=== PATIENT | male | born 1955 | race American Indian/Alaskan Native ===

== ENCOUNTER 2019-03-28 10:58 | Inpatient (IN) | payer OTHER ==
[2019-03-28] MEDS ORDERED: Sodium Chloride 0.9% 1,000 ML IV ONE (11:09)
[2019-03-28] MEDS ORDERED: HYDROmorphone 1 MG/ML Syringe IVPUSH ONE (11:09)
[2019-03-28] MEDS ORDERED: Ondansetron 4 MG/2 ML SDV ONE (11:12)
[2019-03-28] MEDS: Sodium Chloride 0.9% 10 ML Syringe FLUSH PRN (11:14)
[2019-03-28] MEDS ORDERED: Ondansetron 4 MG/2 ML SDV IVPUSH ONE (11:22)
[2019-03-28 12:46] LABS: ANION GAP 13.7
[2019-03-28] MEDS ORDERED: fentaNYL 100 MCG/2 ML SDV IVPUSH ONE (12:49)
--- NOTE | 2019-03-28 14:15 | EDM.PDOC ---
Scribed by Mell Enciso 03/28/19 1322 for Roro Ashley NP ED HPI GENERAL MEDICAL PROBLEM - General Chief Complaint: Abdominal Pain Stated Complaint: ABD PAIN Time Seen by Provider: 03/28/19 11:13 Source of Information: Reports: Patient, RN, RN Notes Reviewed History Limitations: Reports: No Limitations - History of Present Illness INITIAL COMMENTS - FREE TEXT/NARRATIVE: Patient presents to ER with complaint of abdominal pain that he woke up with at 05:00. Pain progressively getting worse. Pain at 4/10 At this time. Last bowel movement today normal for him. Pain is located mid abdomen to left flank. He has had nausea, vomiting, chills, frequency, urgency, and burning with urination. No diarrhea (always loose), fever, chest pains and shortness of breath. No blood in urine. Onset: Today Duration: Getting Worse Location: Reports: Abdomen (to left flank) Quality: Reports: Ache Severity: Moderate Improves with: Reports: None Worsens with: Reports: None Associated Symptoms: Reports: No Other Symptoms Left Flank Pain Score (Numeric/FACES): 10 - Related Data Allergies Allergy/AdvReac Type Severity Reaction Status Date / Time No Known Allergies Allergy Verified 01/02/16 20:45 Home Meds: Home Meds . [No Known Home Meds] 01/02/16 [History] Past Medical History HEENT History: Reports: None Cardiovascular History: Reports: Hypertension Respiratory History: Reports: None Gastrointestinal History: Reports: None Genitourinary History: Reports: None Musculoskeletal History: Reports: None Neurological History: Reports: None Psychiatric History: Reports: None Endocrine/Metabolic History: Reports: None Hematologic History: Reports: None Immunologic History: Reports: None Oncologic (Cancer) History: Reports: None Dermatologic History: Reports: None ED ROS GENERAL - Review of Systems Review Of Systems: Comprehensive ROS is negative, except as noted in HPI. ED EXAM, GI/ABD - Physical Exam Exam: See Below Exam Limited By: No Limitations General Appearance: Alert, WD/WN, No Apparent Distress Eyes: Bilateral: Normal Appearance Ears: Normal External Exam, Normal Canal, Hearing Grossly Normal, Normal TMs Nose: Normal Inspection, Normal Mucosa, No Blood Throat/Mouth: Normal Inspection, Normal Lips, Normal Teeth, Normal Gums, Normal Oropharynx, Normal Voice, No Airway Compromise Head: Atraumatic, Normocephalic Neck: Normal Inspection, Supple, Non-Tender, Full Range of Motion Respiratory/Chest: No Respiratory Distress, Lungs Clear, Normal Breath Sounds, No Accessory Muscle Use, Chest Non-Tender Cardiovascular: Normal Peripheral Pulses, Regular Rate, Rhythm, No Edema, No Gallop, No JVD, No Murmur, No Rub GI/Abdominal Exam: Tender (left upper quadrant and left lower quadrant. ) (Male) Exam: Other (No pain in groin/testes) Rectal (Males) Exam: Deferred Back Exam: Normal Inspection. No: CVA Tenderness (L), CVA Tenderness (R) Extremities: Normal Inspection, Normal Range of Motion, Non-Tender, Normal Capillary Refill, No Pedal Edema Neurological: Alert, Oriented, CN II-XII Intact, Normal Cognition, Normal Gait, Normal Reflexes, No Motor/Sensory Deficits Psychiatric: Flat Affect Skin Exam: Warm, Dry, Intact, Normal Color, No Rash Lymphatic: No Adenopathy Course - Vital Signs Last Recorded V/S: Last Vital Signs Temp 96.4 F 03/28/19 11:18 Pulse 62 03/28/19 11:18 Resp 24 H 03/28/19 11:18 BP 136/73 03/28/19 11:18 Pulse Ox 93 L 03/28/19 11:18 - Orders/Labs/Meds Orders: Active Orders 24 hr Category Date Time Status Peripheral IV Care [RC] . DIRECTED Care 03/28/19 11:09 Active Abdomen Pelvis wo Cont [CT] Urgent Exams 03/28/19 12:01 Taken CULTURE URINE [RM] Stat Lab 03/28/19 11:32 Received Sodium Chloride 0.9% [Saline Flush] Med 03/28/19 11:09 Active 10 ml FLUSH ASDIRECTED PRN Peripheral IV Insertion Adult [OM.PC] Stat Oth 03/28/19 11:08 Ordered Medication Orders Sodium Chloride (Saline Flush) 10 ml FLUSH ASDIRECTED PRN PRN Reason: Keep Vein Open Last Admin: 03/28/19 11:14 Dose: 10 ml Labs: Laboratory Tests 03/28/19 03/28/19 03/28/19 Range/Units 11:32 12:05 12:05 WBC 10.4 H (5.0-10.0) 10^3/uL RBC 4.77 (4.6-6.2) 10^6/uL Hgb 14.4 (14.0-18.0) g/dL Hct 42.1 (40.0-54.0) % MCV 88.3 (80-100) fL MCH 30.2 (27.0-34.0) pg MCHC 34.2 (33.0-35.0) g/dL Plt Count 204 (150-450) 10^3/uL Neut % (Auto) 83.0 H (42.2-75.2) % Lymph % (Auto) 11.3 L (20.5-50.1) % [place] % (Auto) 5.1 (2-8) % Eos % (Auto) 0.4 L (1.0-3.0) % Baso % (Auto) 0.2 (0.0-1.0) % Sodium 134 L (135-145) mmol/L Potassium 4.7 (3.6-5.0) mmol/L Chloride 103 (101-111) mmol/L Carbon Dioxide 22.0 (21.0-31.0) mmol/L Anion Gap 13.7 BUN 19 H (7-18) mg/dL Creatinine 1.3 (0.6-1.3) mg/dL Est Cr Clr Drug Dosing 64.67 mL/min Estimated GFR (MDRD) 56 BUN/Creatinine Ratio 14.61 Glucose 151 H (74-105) mg/dL Calcium 8.3 L (8.4-10.2) mg/dl Total Bilirubin 0.7 (0.2-1.0) mg/dL AST 22 (10-42) IU/L ALT 17 (10-60) IU/L Alkaline Phosphatase 45 (42-121) IU/L Total Protein 6.5 L (6.7-8.2) g/dl Albumin 3.6 (3.2-5.5) g/dl Globulin 2.9 Albumin/Globulin Ratio 1.24 Urine Color Brown (YELLOW) Urine Appearance Turbid (CLEAR) Urine pH 5.0 (5.0-9.0) Ur Specific [place] >= 1.030 (1.005-1.030) Urine Protein >=300 H (NEGATIVE) Urine Glucose (UA) Negative (NEGATIVE) Urine Ketones Negative (NEGATIVE) Urine Occult Blood Large H (NEGATIVE) Urine Nitrite Positive H (NEGATIVE) Urine Bilirubin Small H (NEGATIVE) Urine Urobilinogen 0.2 (0.2-1.0) mg/dL Ur Leukocyte Esterase Negative (NEGATIVE) Urine RBC >100 H /HPF Urine WBC 0-5 (0-5/HPF) /HPF Ur Epithelial Cells Few (NOT SEEN) /HPF Amorphous Sediment Moderate (NOT SEEN) /HPF Urine Bacteria Moderate H (0-FEW/HPF) /HPF Meds: Medications Generic Name Dose Route Start Last Admin Trade Name Freq PRN Reason Stop Dose Admin Sodium Chloride 10 ml 03/28/19 11:09 03/28/19 11:14 Saline Flush FLUSH 10 ml ASDIRECTED PRN Administration Keep Vein Open Discontinued Medications Generic Name Dose Route Start Last Admin Trade Name Freq PRN Reason Stop Dose Admin Fentanyl 100 mcg 03/28/19 12:49 03/28/19 12:54 Sublimaze IVPUSH 03/28/19 12:50 100 mcg ONETIME ONE Administration Hydromorphone HCl 1 mg 03/28/19 11:09 03/28/19 11:12 Dilaudid IVPUSH 03/28/19 11:10 1 mg ONETIME ONE Administration Sodium Chloride 1,000 mls @ 999 mls/hr 03/28/19 11:09 03/28/19 11:14 Normal Saline IV 03/28/19 12:09 999 mls/hr .BOLUS ONE Administration Ondansetron HCl Confirm 03/28/19 11:12 03/28/19 11:23 Zofran Administered 03/28/19 11:13 Not Given Dose 4 mg .ROUTE .STK-MED ONE Ondansetron HCl 4 mg 03/28/19 11:22 03/28/19 11:24 Zofran IVPUSH 03/28/19 11:23 4 mg ONETIME ONE Administration - Radiology Interpretation Free Text/Narrative:: CT Abdomen/Pelvis wo contrast: FINDINGS: Lungs: There is minimal bibasilar atelectasis. Liver: Normal. No mass. Gallbladder and bile ducts: Normal. No calcified stones. No ductal dilation. Pancreas: Normal. No ductal dilation. Spleen: Normal. No splenomegaly. Adrenals: Nonspecific thickening of the adrenal glands. Kidneys and ureters: 3 mm calculus in the left mid ureter causing mild hydronephrosis. Additional left sided intrarenal calculi are present. Nonobstructing nephrolithiasis right kidney measuring up to 3 mm. Stomach and bowel: There are changes of diverticulosis without evidence for diverticulitis. Appendix: No evidence of appendicitis. Intraperitoneal space: Unremarkable. No free air. No significant fluid collection. Vasculature: Unremarkable. No abdominal aortic aneurysm. Lymph nodes: Unremarkable. No enlarged lymph nodes. Bladder: Unremarkable as visualized. Reproductive: Unremarkable as visualized. Bones/joints: There are changes of spondylosis. Findings include disc space narrowing, marginal osteophyte formation & facet arthropathy. Soft tissues: Unremarkable. IMPRESSION: 1. 3 mm calculus in the left mid ureter causing mild hydronephrosis. Additional left sided intrarenal calculi are present. 2. Nonobstructing nephrolithiasis right kidney measuring up to 3 mm. 3. Diverticulosis. Thank you for allowing us to participate in the care of your patient. Dictated and Authenticated by: Charan Mahajan MD 03/28/2019 1:13 PM Central Time ([place] & [place]) See rad report - Re-Assessments/Exams Free Text/Narrative Re-Assessment/Exam: 03/28/19 14:13 Pt case discussed with Dr. Reagan who agreed to accept the patient for inpatient admission Departure - Departure Time of Disposition: 14:14 Disposition: Admitted As Inpatient 67 Condition: Fair Clinical Impression: Pyelonephritis, Nephrolithiasis - Discharge Information *PRESCRIPTION DRUG MONITORING PROGRAM REVIEWED*: No *COPY OF PRESCRIPTION DRUG MONITORING REPORT IN PATIENT NICO: No Forms: ED Department Discharge Sepsis Event Note - Focused Exam Vital Signs: Vital Signs Temp Pulse Resp BP Pulse Ox 03/28/19 11:18 96.4 F 62 24 H 136/73 93 L Date Exam was Performed: 03/28/19 Time Exam was Performed: 14:13 - My Orders Last 24 Hours: My Active Orders 03/28/19 11:08 Peripheral IV Insertion Adult [OM.PC] Stat 03/28/19 11:09 Peripheral IV Care [RC] . DIRECTED Sodium Chloride 0.9% [Saline Flush] 10 ml FLUSH ASDIRECTED PRN 03/28/19 11:32 CULTURE URINE [RM] Stat 03/28/19 12:01 Abdomen Pelvis wo Cont [CT] Urgent - Assessment/Plan Last 24 Hours: My Active Orders 03/28/19 11:08 Peripheral IV Insertion Adult [OM.PC] Stat 03/28/19 11:09 Peripheral IV Care [RC] . DIRECTED Sodium Chloride 0.9% [Saline Flush] 10 ml FLUSH ASDIRECTED PRN 03/28/19 11:32 CULTURE URINE [RM] Stat 03/28/19 12:01 Abdomen Pelvis wo Cont [CT] Urgent I have read and agree with the documentation that has been completed regarding this visit. By signing this record, I attest that the documentation was completed in my physical presence and is an accurate record of the encounter.
[2019-03-28] MEDS ORDERED: Ondansetron 4 MG Tab.DIS PO PRN (14:55)
[2019-03-28] MEDS ORDERED: Docusate Sodium 100 MG Cap PO PRN (14:55)
[2019-03-28] MEDS ORDERED: Acetaminophen 325 MG Tab PO PRN (14:55)
[2019-03-28] MEDS: Morphine 2 MG/ML Syringe IVPUSH PRN ×2 (15:18→18:52)
[2019-03-28] MEDS: Sodium Chloride 0.9% 1,000 ML IV SCH ×2 (15:26→22:44)
--- NOTE | 2019-03-28 15:44 | HP ---
CHIEF COMPLAINT: Left-sided abdominal pain. HISTORY OF PRESENT ILLNESS: The patient is a 63-year-old gentleman with past medical history of diabetes mellitus, hypertension, and dyslipidemia who was admitted through the emergency room because patient woke up this morning at about 5 o'clock complaining of left-sided abdominal pain radiating to his back, and it just was getting worse, and the patient also had episodes of nausea and vomiting and chills and frequency and urgency with urination. The patient denies though any chest pain, obstipation, diarrhea, nor any other complaints and because of the above symptoms, he presented to the emergency room and in the emergency room, he had a urinalysis done, which was remarkable for positive for nitrite and more than 100 of blood, and CAT scan of the abdomen and pelvis showed renal calculus on the left intrarenal area and left ureter and also on the right ureter. He was then admitted for further evaluation and management. PAST MEDICAL HISTORY: As in HPI. REVIEW OF SYSTEMS: As in HPI and the rest of the review of systems is negative. FAMILY HISTORY: Noncontributory. SOCIAL HISTORY: The patient is , lives in [place], [place]. Nonsmoker, non-alcohol drinker. MEDICATIONS: Metformin, losartan, simvastatin, and baby aspirin. ALLERGIES: No known drug allergies. PHYSICAL EXAMINATION: General: Very pleasant gentleman. He is alert and oriented, not in any acute distress. This is after he was given pain medication in the emergency room. Vital Signs: Blood pressure is 136/73, pulse 62, respirations of 24, saturations 93% on room air, and temperature of 96.4. SHEENT: Normocephalic. There are pink palpebral conjunctivae. Sclerae anicteric. No JVD, no lymphadenopathy. Heart: Regular rate and rhythm. Normal S1 and S2. No gallops. No rubs. Lungs: Equal bilaterally. No crackles. No wheezing. Abdomen: Soft. There is [id number] direct tenderness on the left abdominal area and also some CVA tenderness on the left flank area. EXTREMITIES: Negative for any pedal edema. No calf tenderness. LABORATORY WORKUP: CBC: WBC is 10.4, hemoglobin is 14.4, hematocrit 42.1, and platelet is 204. Comprehensive panel: Sodium is 134, BUN is 19, glucose is 151, calcium is 8.3, and total protein is 6.5. The rest of the panel unremarkable. Urinalysis is remarkable for more than 300 urine protein and large occult blood, positive nitrite, small bilirubin, and moderate urine bacteria. There is 0 to 5 wbc's. CAT scan of the abdomen and pelvis showed a 3 mm calculus of the left mid ureter causing mild hydronephrosis and additional left-sided intrarenal calculi and there is also nonobstructive nephrolithiasis in the right kidney measuring up to 3 mm. Otherwise, CAT scan of the abdomen and pelvis unremarkable. ADMITTING DIAGNOSES: 1. Renal colic/Pyelonephritis 2. Nephrolithiasis. 3. Urinary tract infection. 4. Diabetes mellitus. 5. Hypertension. 6. Dyslipidemia. TREATMENT PLAN: The patient is going to be admitted to General Medicine floor. He will be empirically started on IV antibiotics. His urine was sent for culture, and we will also give him pain medication. We will also put him on Flomax, and we will resume his home medication, and the rest of the management as necessary, and the patient is a full code. [facility] /[id number] [place]
[2019-03-28] MEDS: Ampicillin/Sulbactam Na 1.5 GM in Sodium Chloride 0.9% 100 ML IV SCH ×2 (18:43→23:31)
[2019-03-28] MEDS: Tamsulosin 0.4 MG Cap.ER PO SCH (18:45)
[2019-03-28] MEDS: Insulin Lispro 100 Units/ML 3 ML Vial SUBCUT SCH ×2 (19:12→21:42)
[2019-03-28] MEDS: Simvastatin 10 MG Tab PO SCH (21:41)
[2019-03-29] MEDS: Morphine 2 MG/ML Syringe IVPUSH PRN (04:29)
[2019-03-29] MEDS: Ampicillin/Sulbactam Na 1.5 GM in Sodium Chloride 0.9% 100 ML IV SCH ×4 (05:32→23:24)
[2019-03-29] MEDS: Sodium Chloride 0.9% 1,000 ML IV SCH ×3 (06:11→20:39)
[2019-03-29] MEDS: Acetaminophen/oxyCODONE 325-5 MG Tab PO PRN ×3 (07:54→22:27)
[2019-03-29] MEDS: Insulin Lispro 100 Units/ML 3 ML Vial SUBCUT SCH ×4 (08:25→20:46)
[2019-03-29] MEDS: Aspirin 81 MG Tab.EC PO SCH (08:52)
[2019-03-29] MEDS: Tamsulosin 0.4 MG Cap.ER PO SCH ×2 (08:52→17:45)
[2019-03-29] MEDS: Losartan 25 MG Tab PO SCH (08:52)
[2019-03-29] MEDS: Enoxaparin 40 MG/0.4 ML Syringe SUBCUT SCH (08:54)
[2019-03-29] MEDS ORDERED: Enoxaparin 30 MG/0.3 ML Syringe SUBCUT SCH (09:00)
--- NOTE | 2019-03-29 11:33 | PN ---
DATE: 03/29/2019 SUBJECTIVE: The patient mentioned that the blood in his urine has improved, but he still has some flank pains which is usually helped by his current pain medication. He denies though any chest pain, shortness of breath, vomiting, nor any other complaints. OBJECTIVE: Vital Signs: Blood pressure is 113/60, pulse of 60, respirations of 18, temperature of 98.1, saturation is 99%. Heart: Regular rate and rhythm. Normal S1 and S2. No gallops. No rubs. Lungs: Equal bilaterally. No crackles, no wheezing. Abdomen: Moderately obese, soft, nontender. Extremities: Negative for any pedal edema or calf tenderness. MEDICATIONS: Reviewed. PLAN: We will continue with his present management and continue with IV fluids. We will recheck CBC and basic metabolic panel in a.m. [facility] /[id number]
[2019-03-29] MEDS ORDERED: Ampicillin/Sulbactam Na 1.5 GM in Sodium Chloride 0.9% 100 ML IV SCH (11:59)
[2019-03-29] MEDS: Simvastatin 10 MG Tab PO SCH (20:40)
[2019-03-29] MEDS: Sodium Chloride 0.9% 10 ML Syringe FLUSH PRN (20:40)
[2019-03-30] MEDS: Acetaminophen/oxyCODONE 325-5 MG Tab PO PRN (02:31)
[2019-03-30] MEDS: Sodium Chloride 0.9% 1,000 ML IV SCH (03:42)
[2019-03-30] MEDS: Ampicillin/Sulbactam Na 1.5 GM in Sodium Chloride 0.9% 100 ML IV SCH (05:43)
[2019-03-30 06:51] LABS: ANION GAP 10.4
[2019-03-30 07:39] VITALS: BP 122/63; PULSE 64
[2019-03-30] MEDS: Losartan 25 MG Tab PO SCH (08:53)
[2019-03-30] MEDS: Aspirin 81 MG Tab.EC PO SCH (08:53)
[2019-03-30] MEDS: Tamsulosin 0.4 MG Cap.ER PO SCH (08:53)
[2019-03-30] MEDS: Enoxaparin 40 MG/0.4 ML Syringe SUBCUT SCH (08:54)
[2019-03-30] MEDS: Insulin Lispro 100 Units/ML 3 ML Vial SUBCUT SCH (08:54)
--- NOTE | 2019-03-30 11:01 | PN ---
RDATE: 03/30/2019 SUBJECTIVE: The patient last night did pass some very small stools and also this morning. The patient this morning is feeling much better and the pain has improved somewhat. The patient's urine culture came back mixed radha. LABORATORY DATA: Lab workup this morning. WBC 7.9, hemoglobin is 12.2, hematocrit is 36.7, and platelet is 179 and chem-6 remarkable for creatinine of 1.8 and calcium of 7.9. OBJECTIVE: Vital Signs: Blood pressure is 122/63, pulse 64, respirations of 18, temperature of 98.3, and saturation is 98%. Heart: Regular rate and rhythm. Normal S1 and S2. No gallops. No rubs. Lungs: Equal bilaterally. No crackles, no wheezing. Abdomen: Soft, nontender. Bowel sounds positive. Extremities: Negative for any significant pedal edema. No calf tenderness. MEDICATIONS: Reviewed. PLAN: We will discharge patient home today. We will also make an appointment for him to see urologist, and he is going to follow up with his primary care physician in [facility] for a recheck in 1 week. [facility] /[id number]
--- NOTE | 2019-03-31 02:40 | DISCH ---
FINAL DIAGNOSES: 1. Nephrolithiasis. 2. Renal colic. 3. Urinary tract infection. 4. Type 2 diabetes mellitus. 5. Hypertension. 6. Dyslipidemia. 7. Azotemia. BRIEF HISTORY OF PRESENT ILLNESS: Please see H and P. PERTINENT LAB, X-RAY AND OTHER TESTS ON ADMISSION: See H and P hospital. HOSPITAL COURSE: The patient was admitted to General Medicine floor. He was given IV fluids and was also started on IV antibiotics, Unasyn and was also given pain medication as well as Flomax. The patient did well during the hospitalization, had a slow improvement, but otherwise hospital course was uncomplicated, and he did pass very small stones during the hospitalization and patient's abdominal pain and flank pain have somewhat improved. The patient's creatinine went up from 1.3 on admission to 1.8. Because of this, his metformin is going to be held until he follows up with his primary care physician. CONDITION ON DISCHARGE: Improved. DISCHARGE INSTRUCTIONS: Patient is going to be referred to Urology for further evaluation and management. He is going to follow up with his primary care physician at [facility] in 1 week. We will continue with oral antibiotics for the next 5 days, and again I am going to hold his metformin until he follows up with his primary care physician. [facility] /[id number]
== END 2019-03-30 10:30 | disposition home or self-care (01) | DRG 694 ==
LOC: DL.ED 10:58 → DL.MS 14:20 → DL.ED 14:32
PROVIDERS: ADMIT Internal Medicine; ATTEND Internal Medicine
DX: N13.6 Pyonephrosis (principal); N20.0 Calculus of kidney; I10 Essential (primary) hypertension; E11.9 Type 2 diabetes mellitus without complications; E78.5 Hyperlipidemia, unspecified
CPT/HCPCS: 36415; 74176; 80053; 81001; 85025; 87086; 96361; 96374; 96375; 99285; J1170; J2405; J3010; J7030; 80048; 82962; 87040; A9270-GY; J0295; J1650; J2270; J7050

== ENCOUNTER 2021-05-13 09:08 | Emergency (ER) | payer OTHER ==
[2021-05-13] MEDS ORDERED: Tamsulosin 0.4 MG Cap.ER PO ONE ×2 (09:09→09:13)
[2021-05-13] MEDS ORDERED: Ondansetron 4 MG Tab.DIS PO ONE (09:09)
[2021-05-13] MEDS ORDERED: Acetaminophen/HYDROcodone 325-10 MG Tab PO ONE (09:09)
[2021-05-13] MEDS ORDERED: Ketorolac 30 MG/ML SDV IVPUSH ONE (09:12)
[2021-05-13] MEDS ORDERED: Sodium Chloride 0.9% 1,000 ML IV ONE (09:12)
[2021-05-13] MEDS ORDERED: Ondansetron 4 MG/2 ML SDV IV ONE (09:12)
[2021-05-13] MEDS ORDERED: Sodium Chloride 0.9% 10 ML Syringe FLUSH PRN (09:13)
[2021-05-13] MEDS ORDERED: HYDROmorphone 1 MG/ML Syringe IVPUSH ONE (09:13)
[2021-05-13 09:48] VITALS: BP 143/72; PULSE 87
[2021-05-13 09:49] LABS: ANION GAP 17.1 mEq/L (7-13)
[2021-05-13] MEDS ORDERED: Ondansetron 4 MG Tab.DIS ONE (10:41)
[2021-05-13] MEDS ORDERED: Tamsulosin 0.4 MG Cap.ER ONE (10:42)
[2021-05-13] MEDS ORDERED: Acetaminophen/HYDROcodone 325-10 MG Tab ONE (10:44)
== END 2021-05-13 11:00 | disposition home or self-care (01) ==
LOC: DL.ED 09:08
DX: N13.2 Hydronephrosis with renal and ureteral calculous obstruction (principal); E78.00 Pure hypercholesterolemia, unspecified; I10 Essential (primary) hypertension; Z79.82 Long term (current) use of aspirin; Z79.899 Other long term (current) drug therapy
CPT/HCPCS: 36415; 74176; 80053; 81001; 85025; 96374; 96375; 99284; A9270; J1170; J1885; J2405; J7030

== ENCOUNTER 2023-04-06 17:43 | Emergency (ER) | payer OTHER | END 2023-04-06 19:45 | disposition left against medical advice (07) | LOC: DL.ED 17:43 | DX: Z53.21 Procedure and treatment not carried out due to patient leaving prior to being seen by health care provider (principal) ==

== ENCOUNTER 2024-06-30 17:19 | Emergency (ER) | payer OTHER ==
[2024-06-30] MEDS ORDERED: Sodium Chloride 0.9% 10 ML Syringe FLUSH PRN (17:27)
[2024-06-30 17:34] LABS: BASOPHILS PERCENT AUTO 0.2 % (0.0-1.0); HEMATOCRIT 44.9 % (40.0-54.0); HEMOGLOBIN 15.2 g/dL (14.0-18.0); LYMPHOCYTES PERCENT AUTO 16.4 % (20.5-50.1); MEAN CORPUSCULAR HEMOGLOBIN 30.2 pg (27.0-34.0); MEAN CORPUSCULAR HGB CONC 33.9 g/dL (33.0-35.0); MEAN CORPUSCULAR VOLUME 89.3 fL (80-100); NEUTROPHILS PERCENT AUTO 76.4 % (42.2-75.2); PLATELET COUNT,PLT 216 10^3/uL (150-450); RED BLOOD CELL COUNT 5.03 10^6/uL (4.6-6.2); WHITE BLOOD CELL COUNT,WBC 12.6 10^3/uL (5.0-10.0)
[2024-06-30] MEDS: Ketorolac 30 MG/ML SDV IVPUSH ONE (17:34)
[2024-06-30] MEDS: Ondansetron 4 MG/2 ML SDV IVPUSH ONE (17:34)
[2024-06-30] MEDS: Sodium Chloride 0.9% 1,000 ML IV ONE (17:34)
[2024-06-30 17:51] LABS: ALANINE AMINOTRANSFERASE,ALT 34 U/L (16-63); ALBUMIN 3.8 g/dL (3.4-5.0); ALKALINE PHOSPHATASE 87 U/L (46-116); ANION GAP 15.1 mEq/L (7-13); ASPARTATE AMNIOTRANSFERASE,AST 20 U/L (15-37); BILIRUBIN TOTAL 0.6 mg/dL (0.2-1.0); BLOOD UREA NITROGEN,BUN 23 mg/dL (7-18); BUN/CREATININE RATIO 11.2 (No establ ref range); C-REACTIVE PROTEIN < 0.50 ng/dL (<=0.50); CARBON DIOXIDE,CO2 26 mmol/L (21-32); CHLORIDE,CL 105 mmol/L (98-107); CREATININE 2.06 mg/dL (0.70-1.30); EST CRCL DRUG DOSING (CG) 37.06 mL/min; ESTIMATED GFR 35 mL/min (>=60); GLUCOSE RANDOM 185 mg/dL (70-99); MAGNESIUM 1.6 mg/dL (1.8-2.4); POTASSIUM,K 4.1 mmol/L (3.5-5.1); PROTEIN TOTAL,TP 7.7 g/dL (6.4-8.2); SODIUM,NA 142 mmol/L (136-145)
[2024-06-30 17:57] LABS: APPEARANCE,URINE CLEAR (CLEAR); BILIRUBIN,URINE NEGATIVE (NEGATIVE); COLOR,URINE YELLOW (YELLOW); GLUCOSE,URINE NEGATIVE (NEGATIVE); KETONES,URINE NEGATIVE (NEGATIVE); LEUKOCYTE ESTERASE,URINE NEGATIVE (NEGATIVE); NITRITE,URINE NEGATIVE (NEGATIVE); OCCULT BLOOD,URINE NEGATIVE (NEGATIVE); PH,URINE 5.5 (5.0-9.0); PROTEIN,URINE 30 (NEGATIVE)
[2024-06-30 18:15] VITALS: BP 164/71; PULSE 68
[2024-06-30 18:21] LABS: BACTERIA,URINE FEW /HPF (0-FEW/HPF); EPITHELIAL CELLS,URINE RARE /HPF (NOT SEEN); MUCUS,URINE FEW /LPF (NOT SEEN); RBC,URINE 20-30 /HPF (0-5); WBC,URINE 0-5 /HPF (0-5/HPF)
== END 2024-06-30 18:25 | disposition home or self-care (01) ==
LOC: DL.ED 17:19
DX: N13.2 Hydronephrosis with renal and ureteral calculous obstruction (principal); I10 Essential (primary) hypertension; E78.00 Pure hypercholesterolemia, unspecified; Z79.82 Long term (current) use of aspirin; Z79.899 Other long term (current) drug therapy; Z86.16 Personal history of COVID-19
CPT/HCPCS: 36415; 74176; 80053; 81001; 83735; 85025; 86140; 96361; 96374; 96375; 99284; J1885; J2405; J7030